=== PATIENT | female | born 1995 | race Two or more races ===

== ENCOUNTER 2020-07-22 18:24 | Emergency (ER) | payer SELFPAY ==
[~2020-07-22] VITALS: Ht 165.1 cm; Wt 75.0 kg
[2020-07-22] MEDS ORDERED: SODIUM CHLORIDE 0.9% 1,000 ML IV ONE (19:45)
[2020-07-22 20:06] LABS: CLARITY URINE CLEAR (CLEAR); COLOR URINE YELLOW (YELLOW); KETONES URINE NEGATIVE (NEGATIVE); LEUKOCYTE ESTERASE URINE NEGATIVE (NEGATIVE); NITRITE URINE NEGATIVE (NEGATIVE); OCCULT BLOOD URINE NEGATIVE (NEGATIVE); PROTEIN URINE NEGATIVE (NEGATIVE); SPECIFIC GRAVITY URINE 1.015 (1.005-1.030)
[2020-07-22] MEDS ORDERED: ACETAMINOPHEN 325MG TABLET PO ONE (20:15)
[2020-07-22 20:16] LABS: BASOPHILS % 0.4 % (0.0-2.0); EOSINOPHILS % 1.4 % (0.0-5.0); HEMATOCRIT. 37.9 % (36.0-48.0); LYMPHOCYTES % 28.6 % (20.0-50.0); MEAN CORPUSCULAR HEMOGLOBIN 31.1 pg (28.0-32.0); MEAN CORPUSCULAR VOLUME 90.2 fL (81.0-99.0); MEAN PLATELET VOLUME 11.1 fl (7.4-10.4); NEUTROPHILS % 63.6 % (40.0-76.0); PLATELET 152 x1000/uL (130-400); RED CELL DISTRIBUTION WIDTH 13.2 % (11.6-14.6)
[2020-07-22 20:23] LABS: CHLORIDE 106 mEq/L (98-107)
[2020-07-22 20:35] LABS: B-HCG QUANTITATIVE < 1 mIU/mL (<3)
[2020-07-22 23:00] VITALS: BP 112/58
== END 2020-07-22 23:30 | disposition home or self-care (01) ==
LOC: ER 18:24
DX: N93.8 Other specified abnormal uterine and vaginal bleeding (principal); F17.200 Nicotine dependence, unspecified, uncomplicated; F12.10 Cannabis abuse, uncomplicated; I10 Essential (primary) hypertension; Z13.9 Encounter for screening, unspecified; Z98.890 Other specified postprocedural states
CPT/HCPCS: 36415; 76830; 76856; 80053; 81003; 81025; 84702; 85025; 93005; 99285; 99406; J7030; 86850